=== PATIENT | female | born 1940 | race Caucasian/White ===

== ENCOUNTER 2017-12-19 04:57 | Emergency (ER) | payer MEDICAID, SELFPAY ==
[2017-12-19 04:58] VITALS: BP 121/85; PULSE 89; RESP 26; TEMP 36.8; O2SAT 86; BMI 37.0
--- NOTE | 2017-12-19 05:27 | EKG12_ITS ---
Test Reason : ABD PAIN Blood Pressure : / mmHG Vent. Rate : 127 BPM Atrial Rate : 138 BPM P-R Int : 120 ms QRS Dur : 186 ms QT Int : 364 ms P-R-T Axes : 000 -36 134 degrees QTc Int : 529 ms Sinus tachycardia with frequent ventricular-paced complexes Left axis deviation Left ventricular hypertrophy with QRS widening and repolarization abnormality Possible Lateral infarct , age undetermined Abnormal ECG Confirmed by POLLO GALVAN, PARAG ([id number]), associate entertainment editor DUANE WRIGHT ([id number]) on 12/21/2017 1:23:40 PM Referred By: SVETA Confirmed By:PARAG ABAD MD
--- NOTE | 2017-12-19 06:02 | EKG12_ITS ---
Test Reason : REPEAT Blood Pressure : / mmHG Vent. Rate : 100 BPM Atrial Rate : 119 BPM P-R Int : 000 ms QRS Dur : 134 ms QT Int : 398 ms P-R-T Axes : 000 -09 082 degrees QTc Int : 513 ms Atrial fibrillation with frequent ventricular-paced complexes Non-specific intra-ventricular conduction block Cannot rule out Anterior infarct , age undetermined Abnormal ECG Confirmed by PARAG ABAD MD ([id number]), video news editor DUANE WRIGHT ([id number]) on 12/21/2017 1:35:35 PM Referred By: SVETA Confirmed By:PARAG ABAD MD
[2017-12-19] MEDS: Ondansetron 4 MG/2 ML Vial IV (06:23)
--- NOTE | 2017-12-19 07:12 | ED.RN ---
PT MONITOR ALERTING VTACH/VFIB. PT NOTED TO HAVE 23-[address] BE[address] BANGURA NOTIFIED. NO NEW ORDERS AT THIS TIME. MD WESLEY PT HAS BEEN HAVING RUNS OF SAME SINCE ADMISSION TO ER.
[2017-12-19 07:31] LABS: Absolute Lymphocyte Count 0.37 X10^3/ul (0.83-4.51); Absolute Neutrophil Count 7.4 X10^3/uL (2.0-7.7); Basophil# 0.01 X10^3/uL; Basophil% 0.1 % (0-1); Differential Indicated SCAN CRITERIA MET; Eosinophil# 0.09 X10^3/uL; Eosinophils% 1.1 % (0-5); Hematocrit 48.9 % (37-47); Hemoglobin 15.1 g/dl (12.0-15.0); Lymphocyte # 0.37 X10^3/ul (4.0); Lymphocyte % 4.3 % (19-41); Mean Corp Hgb Conc 30.9 g/gl (32-36); Mean Corpuscular Hgb 28.2 pg (27.0-32.0); Mean Corpuscular Volume 91.2 fL (81-99); Mean Platelet Vol. 10.9 fl (6.2-12.0); Monocyte# 0.67 X10^3/uL; Monocyte% 7.8 % (0-10); Neutrophil # 7.38 X10^3/uL (2.7-7.7); Neutrophil % 86.3 % (47-70); POSITIVE COUNT NO; POSITIVE DIFFERENTIAL YES; POSITIVE MORPHOLOGY NO; Platelet Count 92 K/mm3 (150-450); RBC Distribution Width CV 17.3 % (11.6-14.6); RBC Distribution Width SD 57.8 fl (35.1-43.9); Red Blood Count 5.36 M/mm3 (4.2-5.4); White Blood Count 8.6 K/mm3 (4.4-11.0)
[2017-12-19 08:03] LABS: International Normalized Ratio 2.3; Prothrombin Time (Protime)PT. 25.7 SECONDS (11.7-14.9)
[2017-12-19 08:07] LABS: Platelet Estimate SLT DEC (ADEQ)
[2017-12-19 08:39] VITALS: PULSE 120; RESP 16; O2SAT 97; O2SAT 99
[2017-12-19 09:17] LABS: ALB/GLOB Ratio 1.1 RATIO (0.9-2.4); AST(SGOT) 48 U/L (15-37); Alanine Aminotransfer ALT/SGPT 67 U/L (13-56); Albumin, Serum 3.2 g/dL (3.2-5.0); Alkaline Phosphatase 115 U/L (45-117); Anion Gap 9 (5-15); BUN 26 mg/dL (7-18); BUN/Creat Ratio 25.5 RATIO (10-20); Calcium,Total 8.2 mg/dL (8.5-10.1); Chloride 108 mmol/L (98-107); Creatinine, Serum 1.02 mg/dL (0.55-1.02); EST Glomerular Filtration Rate 56 mL/min (>60); Est Glom Filt Rate - Afr Amer 68 mL/min (>60); Estimated Creatinine Clearance 51.62 ml/min; Glucose 176 mg/dL (74-106); Lipase 55 U/L (73-393); Potassium 4.1 mmol/L (3.5-5.1); Protein, Total 6.2 g/dL (6.4-8.2); Sodium Level 142 mmol/L (136-145)
[2017-12-19] MEDS: Piperacil/Tazobactam 3.375 GM/50 ML ML IV (09:45)
--- NOTE | 2017-12-19 09:52 | ED.VISSUMM ---
- ER Visit Summary Date of Service: 12/19/17 Chief Complaint: Abdominal pain History of Present Illness: The patient is a 77 F presenting with abdominal pain. This started today. She complains of diffuse abdominal pain and nausea. She denies vomiting. Denies fever. Denies chest pain or shortness of breath. She also complains of left lower extremity pain. She states she hit her leg on her wheelchair 1 week ago. She now has redness to the left lower extremity. She has a history of CHF, atrial fibrillation. She is on Coumadin. Physical Examination: Vitals are stable. Patient is afebrile. Alert no acute distress. Pulse ox 86% on room air HEENT exam dry mucous membranes Neck is supple. Lungs are diminished bilaterally. Heart is irregular and tachycardic Abdomen is soft left lower quadrant tenderness with no rebound or guarding Extremities left lower extremity erythema and warmth. Dopplerable pulse Skin is warm and dry. No focal neurologic deficit. Remainder of exam is unremarkable. Emergency Department Course and Treatment: Patient given Zofran IV with improvement of her nausea. Chest x-ray shows cardiomegaly. EKG shows sinus tachycardia rate 127 with PVCs. On the monitor she is going in and out of A. fib. When she goes into A. fib she begins to have wide complex tachycardia with paced beats. CBC shows platelets count 92. INR 2.3. Chemistry show glucose 176, BUN 26. ALT 67, AST 48, lipase 55. Troponin is negative. CT abdomen and pelvis shows poorly distended region of the rectum with possible perirectal abscess and wall thickening and edema. Recommend clinical correlation. If there is high clinical concern; consider rectal contrast CT versus delayed oral contrast CT with IV contrast. Moderate atrophy of the kidneys with presumed hypodense renal cysts. Outpatient ultrasound of the kidneys can be helpful to further evaluate. She is started on amiodarone IV. She was given Zosyn, vancomycin IV. Patient and family offered admission at [facility]. They are requesting that she is transferred to [facility] in [place]. Discussed with [facility] for transfer. Disposition: Transfer to [facility] Impression: Left lower extremity cellulitis, abdominal pain, A. fib, hypoxia This note was generated with [employer] dictation software. It may contain incorrect words, spelling, and punctuation that were not noted in review of the chart prior to signing ED Disposition - Plan for ED Patient: Chief Complaint: Abd Pain Referrals: Care Physician,No Primary [Primary Care Provider] -
[2017-12-19 09:58] VITALS: BP 131/95; PULSE 103; RESP 20; TEMP 36.8; O2SAT 98
[2017-12-19 10:17] VITALS: BP 119/96; PULSE 98; RESP 21; O2SAT 99
== END 2017-12-19 11:57 | disposition short-term general hospital (02) ==
LOC: ED 05:59
PROVIDERS: Emergency Provider Emergency Medicine
DX: L03.116 Cellulitis of left lower limb (principal); R10.32 Left lower quadrant pain; I48.91 Unspecified atrial fibrillation; R09.02 Hypoxemia; I49.3 Ventricular premature depolarization; I50.9 Heart failure, unspecified; Z90.49 Acquired absence of other specified parts of digestive tract; Z90.710 Acquired absence of both cervix and uterus; Z95.0 Presence of cardiac pacemaker; Z79.01 Long term (current) use of anticoagulants
CPT/HCPCS: 71045; 74176; 80053; 83690; 84484; 85025; 85610; 93005; 96365; 96368; 96374; 99285; J7030; A4216; J2405